=== PATIENT | female | born 1980 | race African-American/Black ===

== ENCOUNTER 2017-06-05 10:09 | Emergency (ER) | payer OTHER ==
[~2017-06-05] VITALS: Ht 175.3 cm; Wt 76.9 kg
[~2017-06-05 10:09] MED LIST: ALBU8.5H5 INH
[2017-06-05 11:19] LABS: HEMATOCRIT 42.3 % (34.6-47.8); HEMOGLOBIN 14.2 g/dL (11.7-16.4); WHITE BLOOD COUNT 8.7 x10^3/uL (3.4-10)
[2017-06-05 11:32] LABS: ASPARTATE AMINO TRANSFERASE 6 U/L (15-37); BLOOD UREA NITROGEN 11 mg/dL (7-18)
[2017-06-05] MEDS ORDERED: HYDROmorphone 1 MG/ML, 1ML IV ONE (14:00)
[2017-06-05] MEDS ORDERED: ONDANSETRON 2MG/ML, 2ML IVPush ONE (14:00)
[2017-06-05] MEDS ORDERED: SODIUM CHLORIDE 0.9% 1,000ML IVBOLUS ONE (14:00)
[2017-06-05] MEDS ORDERED: SODIUM CHLORIDE FLUSH 10ML SYR IVF ONE (14:00)
[2017-06-05] MEDS ORDERED: HYDROmorphone 1 MG/ML, 1ML ONE (14:03)
[2017-06-05] MEDS ORDERED: ONDANSETRON 2MG/ML, 2ML ONE (14:03)
[2017-06-05] MEDS ORDERED: OMNIPAQUE 350 MG/ML, 100ML BOTTLE ONE (14:18)
[2017-06-05] MEDS ORDERED: ONDANSETRON ODT 4 MG ONE (15:10)
[2017-06-05 15:29] VITALS: BP 118/72
[2017-06-05] MEDS ORDERED: ONDANSETRON ODT 4 MG PO ONE (15:30)
== END 2017-06-05 15:31 | disposition home or self-care (01) ==
LOC: ED 10:27
DX: O20.9 Hemorrhage in early pregnancy, unspecified (principal); R10.9 Unspecified abdominal pain; N94.4 Primary dysmenorrhea
CPT/HCPCS: 36415; 74177; 76801; 80053; 84703; 85025; 86901; 96361; 96374; 96375; 99285; J1170; J2405; J7030; Q0162; Q9967